=== PATIENT | male | born 1950 | race Caucasian/White ===

== ENCOUNTER 2017-10-05 03:01 | Inpatient (IN) | payer OTHER ==
[2017-10-05] VITALS (8 sets, daily range): BP systolic 119–208; BP diastolic 61–103; PULSE 73–99; TEMP 97.9–99.1
[~2017-10-05] VITALS: Ht 175.3 cm; Wt 76.5 kg
[~2017-10-05 03:01] MED LIST: ANTIVERT 25MG25 MG PO; ASPIRIN 81M81 MG/TA2 PO; CIPRO 500MG TA500 MG PO; CLARITIN 1010 MG/TAB PO; FLONASEALLERGY NS; NORVASC 5MG5 MG/TAB PO; PLAVIX 75MG TAB75 MG PO; PROCARDIA XL 3030 MG PO; TOPROL XL 25MG25 MG PO
[2017-10-05 03:36] LABS: BASO # 0.1 (0.0-0.2); BASO % 0.8 % (0.0-2.0); EOS # 0.1 (0.0-0.7); EOS % 0.9 % (0-4.0); GRAN # 10.4 (1.4-6.5); HEMATOCRIT 42.6 % (42.0-52.0); HEMOGLOBIN 13.9 g/dl (13.5-18.0); LYMPH # 1.9 (1.2-3.4); LYMPH % 13.6 % (20.0-51.0); MEAN CELL VOLUME 93 fl (80.0-100.0); MEAN CORPUSCULAR HEMOGLOBIN 31 pg (27.0-31.0); MEAN CORPUSCULAR HGB CONC 33 g/dl (33.0-37.0); MEAN PLATELET VOLUME 8.9 fl (7.4-10.4); MONO # 1.4 (0.1-0.6); MONO % 10.2 % (1.7-9.3); PLATELET COUNT 327 K/mm3 (130-400); RED BLOOD COUNT 4.56 M/mm3 (4.20-5.60); REDCELL DISTRIBUTION WIDTH-CV 12.9 % (11.5-14.5)
[2017-10-05 03:42] LABS: INR 1.1 (0.8-3.0); PROTHROMBIN TIME 12.5 SECONDS (9.7-12.8)
[2017-10-05 03:44] LABS: PARTIAL THROMBOPLASTIN TIME 30.6 SECONDS (26.0-37.0)
[2017-10-05 03:47] LABS: ALBUMIN 4.3 gm/dL (3.5-5.0); BILIRUBIN,TOTAL 1.1 mg/dL (0.0-1.0); CALCIUM 9.4 mg/dL (8.4-10.2); CREATININE, serum 1.95 mg/dL (0.66-1.25); POTASSIUM 3.8 mmol/L (3.4-5.0); TOTAL PROTEIN 7.4 gm/dL (6.4-8.2)
[2017-10-05 04:28] LABS: COLLECTION METHOD CLEAN CATCH
[2017-10-05 04:37] LABS: MUCOUS Present /lpf; PH 6 (5-8); SQUAMOUS EPITHELIAL None Seen /hpf; URINE APPEARANCE Clear; URINE BACTERIA None Seen /hpf; URINE BILIRUBIN Negative (NEGATIVE); URINE BLOOD 1+ (NEGATIVE); URINE COLOR Yellow; URINE GLUCOSE Negative (NEGATIVE); URINE KETONE Negative (NEGATIVE); URINE LEUKOCYTE ESTERASE Negative (NEGATIVE); URINE NITRATE Negative (NEGATIVE); URINE PROTEIN(semi-quant) 2+ (NEGATIVE); URINE UROBILINOGEN Negative (NEGATIVE)
[2017-10-05] MEDS ORDERED: PRAVACHOL 20MG20 MG PO (05:58)
[2017-10-05 08:35] LABS: HEMOGLOBIN 13.1 g/dl (13.5-18.0)
[2017-10-05 12:32] LABS: HEMATOCRIT 35.3 % (42.0-52.0); HEMOGLOBIN 11.8 g/dl (13.5-18.0)
[2017-10-05 16:18] LABS: HEMATOCRIT 33.6 % (42.0-52.0); HEMOGLOBIN 11.1 g/dl (13.5-18.0)
[2017-10-05 20:42] LABS: HEMATOCRIT 33.4 % (42.0-52.0); HEMOGLOBIN 10.9 g/dl (13.5-18.0)
[2017-10-06] VITALS: BP 132/57; PULSE 77; TEMP 97.3
[2017-10-06 03:30] VITALS: BP 136/68; PULSE 80; TEMP 97.8
[2017-10-06 08:04] VITALS: BP 133/65; PULSE 71; TEMP 98.1
[2017-10-06 08:34] LABS: BASO # 0.1 (0.0-0.2); BASO % 0.5 % (0.0-2.0); EOS # 0.2 (0.0-0.7); EOS % 1.7 % (0-4.0); GRAN # 7.8 (1.4-6.5); GRAN % 69.4 % (42.2-75.2); LYMPH # 1.9 (1.2-3.4); MEAN CELL VOLUME 95 fl (80.0-100.0); MEAN PLATELET VOLUME 9.4 fl (7.4-10.4); MONO # 1.2 (0.1-0.6); PLATELET COUNT 261 K/mm3 (130-400); RED BLOOD COUNT 3.67 M/mm3 (4.20-5.60); REDCELL DISTRIBUTION WIDTH-CV 13.1 % (11.5-14.5)
[2017-10-06 08:36] LABS: HEMATOCRIT 34.7 % (42.0-52.0); HEMOGLOBIN 11.4 g/dl (13.5-18.0); MEAN CORPUSCULAR HEMOGLOBIN 31 pg (27.0-31.0); MEAN CORPUSCULAR HGB CONC 33 g/dl (33.0-37.0)
[2017-10-06 08:39] LABS: CALCIUM 8.6 mg/dL (8.4-10.2); CREATININE, serum 1.55 mg/dL (0.66-1.25)
[2017-10-06 11:44] VITALS: BP 132/73; PULSE 71; TEMP 97.9
[2017-10-06 15:22] VITALS: BP 127/60; PULSE 72; TEMP 97.6
[2017-10-06 20:05] VITALS: BP 132/70; PULSE 79; TEMP 97.9
[2017-10-07] VITALS (10 sets, daily range): BP systolic 126–159; BP diastolic 62–77; PULSE 58–76; TEMP 97.2–98.2
[2017-10-07 12:50] LABS: BASO # 0.1 (0.0-0.2); BASO % 0.8 % (0.0-2.0); EOS # 0.4 (0.0-0.7); EOS % 3.6 % (0-4.0); GRAN # 7.1 (1.4-6.5); GRAN % 68.1 % (42.2-75.2); HEMATOCRIT 39.1 % (42.0-52.0); HEMOGLOBIN 12.7 g/dl (13.5-18.0); LYMPH # 1.6 (1.2-3.4); LYMPH % 15.7 % (20.0-51.0); MEAN CELL VOLUME 93 fl (80.0-100.0); MEAN CORPUSCULAR HEMOGLOBIN 30 pg (27.0-31.0); MEAN CORPUSCULAR HGB CONC 33 g/dl (33.0-37.0); MEAN PLATELET VOLUME 8.9 fl (7.4-10.4); MONO # 1.2 (0.1-0.6); MONO % 11.3 % (1.7-9.3); PLATELET COUNT 279 K/mm3 (130-400); RED BLOOD COUNT 4.19 M/mm3 (4.20-5.60)
[2017-10-07 13:05] LABS: CALCIUM 9.2 mg/dL (8.4-10.2); CREATININE, serum 1.7 mg/dL (0.66-1.25); POTASSIUM 3.5 mmol/L (3.4-5.0)
[2017-10-08 03:51] VITALS: BP 140/72; PULSE 69; TEMP 97.3
[2017-10-08 06:51] LABS: BASO # 0.1 (0.0-0.2); BASO % 0.8 % (0.0-2.0); EOS # 0.4 (0.0-0.7); HEMOGLOBIN 12.2 g/dl (13.5-18.0); LYMPH # 1.6 (1.2-3.4); LYMPH % 15.6 % (20.0-51.0); MEAN CELL VOLUME 93 fl (80.0-100.0); MEAN CORPUSCULAR HEMOGLOBIN 31 pg (27.0-31.0); MEAN CORPUSCULAR HGB CONC 33 g/dl (33.0-37.0); MONO # 1.1 (0.1-0.6); MONO % 10.3 % (1.7-9.3); PLATELET COUNT 264 K/mm3 (130-400); RED BLOOD COUNT 3.96 M/mm3 (4.20-5.60); REDCELL DISTRIBUTION WIDTH-CV 12.8 % (11.5-14.5)
[2017-10-08 06:53] LABS: HEMATOCRIT 36.9 % (42.0-52.0)
[2017-10-08 07:08] LABS: CALCIUM 8.9 mg/dL (8.4-10.2); CREATININE, serum 1.61 mg/dL (0.66-1.25); MAGNESIUM 1.7 mg/dL (1.6-2.3); POTASSIUM 3.8 mmol/L (3.4-5.0)
[2017-10-08 07:46] VITALS: BP 148/78; PULSE 73; TEMP 97.7
== END 2017-10-08 10:55 | disposition home or self-care (01) | DRG 394 ==
LOC: COL.ER 03:01 → MEDICAL 05:23
PROVIDERS: Emergency Medicine; Family Medicine; Internal Medicine Gastroenterology; Nurse Practitioner Family
PROC: 0DJD8ZZ Inspection of Lower Intestinal Tract, Via Natural or Artificial Opening Endoscopic (ICD-10-PCS; principal; 2017-10-07 14:45)
DX: K55.039 Acute (reversible) ischemia of large intestine, extent unspecified (principal); M31.31 Wegener's granulomatosis with renal involvement; K92.1 Melena; I12.9 Hypertensive chronic kidney disease with stage 1 through stage 4 chronic kidney disease, or unspecified chronic kidney disease; N18.3 Chronic kidney disease, stage 3 (moderate); E86.0 Dehydration; F17.210 Nicotine dependence, cigarettes, uncomplicated; I73.9 Peripheral vascular disease, unspecified
CPT/HCPCS: 99223-AI; 99231-AI; 99232-AI; 99239; C9113; J0360; J1956; J2250; J2270; J2765; J3010; J7030

== ENCOUNTER → 2019-07-07 | Outpatient (CLI) | payer MEDICARE, OTHER ==
[~2019-07-07] MED LIST changes: +PRAVACHOL 20MG20 MG PO
== END ==
LOC: COL.RAD 08:48
DX: R31.0 Gross hematuria (principal)

== ENCOUNTER 2019-07-17 07:25 | Observation (INO) | payer MEDICARE, OTHER ==
[2019-07-17] VITALS (11 sets, daily range): BP systolic 116–200; BP diastolic 55–90; PULSE 63–82; TEMP 97.2–98.1
[~2019-07-17] VITALS: Ht 175.3 cm; Wt 77.0 kg
[2019-07-17 07:58] LABS: BASO # 0.1 (0.0-0.2); EOS # 0.2 (0.0-0.7); EOS % 2.3 % (0-4.0); GRAN # 7.3 (1.4-6.5); GRAN % 75.2 % (42.2-75.2); HEMATOCRIT 41.5 % (42.0-52.0); HEMOGLOBIN 13.8 g/dl (13.5-18.0); LYMPH # 1.3 (1.2-3.4); LYMPH % 12.9 % (20.0-51.0); MEAN CELL VOLUME 90 fl (80.0-100.0); MEAN CORPUSCULAR HEMOGLOBIN 30 pg (27.0-31.0); MEAN CORPUSCULAR HGB CONC 33 g/dl (33.0-37.0); MONO # 0.8 (0.1-0.6); MONO % 8.3 % (1.7-9.3); PLATELET COUNT 305 K/mm3 (130-400); RED BLOOD COUNT 4.59 M/mm3 (4.20-5.60); REDCELL DISTRIBUTION WIDTH-CV 13.9 % (11.5-14.5)
[2019-07-17 08:09] LABS: ALBUMIN 4.2 gm/dL (3.5-5.0); BILIRUBIN,TOTAL 1.1 mg/dL (0.0-1.0); C-REACTIVE PROTEIN 0.6 mg/dL (0.0-0.9); CALCIUM 9.1 mg/dL (8.4-10.2); CREATININE, serum 2.28 (0.66-1.25); POTASSIUM 3.6 mmol/L (3.4-5.0); TOTAL PROTEIN 6.9 gm/dL (6.4-8.2)
--- NOTE | 2019-07-17 11:00 | NUR ---
Patient is resting and has had relief from the Morphine. Voids per urinal.
--- NOTE | 2019-07-17 12:00 | NUR ---
Resting with eyes closed and offers no further complaints of pain.
--- NOTE | 2019-07-17 14:00 | NUR ---
Resting with eyes closed and has voided per urinal. Allowed to rest and awaits surgery.
--- NOTE | 2019-07-17 18:10 | NUR ---
Patient post op to room 348. See assessment. Beckett catheter patent, cbi infusing slow rate, urine clear. No c/o urinary burning, frequency or hesitancy. No other c/o at this time.
--- NOTE | 2019-07-17 20:15 | NUR ---
Pt. sitting up in bed at this time. Pt. is A&OX3, assessment complete. INT to lt. ac patent. Three way kim with irrigation running slowly at this time. Urine is light pink at this time. Pt. denies pain or other needs, call light within reach.
[2019-07-18 04:30] VITALS: BP 109/50; PULSE 53; TEMP 97.6
[2019-07-18 04:43] VITALS: BP 126/58; PULSE 66; TEMP 97.8
[2019-07-18 04:45] VITALS: BP 132/85; PULSE 67; TEMP 97.6
[2019-07-18 07:33] VITALS: BP 134/64; PULSE 72; TEMP 98.9
--- NOTE | 2019-07-18 09:46 | NUR ---
Assessment completed, alert/oriented, vital signs stable, denies any signficant pain or discomfort, CBI running very slow and output is clear slightly pink/ no clots noted, making good urine output as well/ hx of CKD, cereat was slightly elevated from baseline, patient is tolerating diet well and drinking a lot of fluid, deneis other needs at this time, spok with and will prime and pull catheter and do 6 bottel routine/ likely discahrge later today
[2019-07-18 11:38] VITALS: BP 115/59; PULSE 72; TEMP 97.9
--- NOTE | 2019-07-18 16:27 | NUR ---
Discharge orders discussed with the patient, instructed him call office to confirm follow up date and time, isntructed to drink plent of water/ fluids, instructed to take it easy and not over exert for a few days, instructed to continue home meds, IV removed, he is ambulatory and I escorted him out the door
== END 2019-07-18 16:28 | disposition home or self-care (01) ==
LOC: COL.ER 07:25 → SURG 08:30 → INPTSU 08:30 → SURG 18:44
PROVIDERS: ADMIT Family Medicine
DX: C67.9 Malignant neoplasm of bladder, unspecified (principal); N32.0 Bladder-neck obstruction; N20.1 Calculus of ureter; I12.9 Hypertensive chronic kidney disease with stage 1 through stage 4 chronic kidney disease, or unspecified chronic kidney disease; N18.3 Chronic kidney disease, stage 3 (moderate); E78.00 Pure hypercholesterolemia, unspecified; F17.290 Nicotine dependence, other tobacco product, uncomplicated; Z79.899 Other long term (current) drug therapy; Z79.82 Long term (current) use of aspirin; R31.0 Gross hematuria; Z88.8 Allergy status to other drugs, medicaments and biological substances; Z88.1 Allergy status to other antibiotic agents; Z80.51 Family history of malignant neoplasm of kidney
CPT/HCPCS: C1769; C2617; G0378; J0690; J1100; J1170; J2270; J2405; J2704; J3010; J7030; Q9967

== ENCOUNTER 2020-10-01 17:05 | Emergency (ER) | payer MEDICARE, OTHER ==
[~2020-10-01] VITALS: Ht 175.3 cm; Wt 75.9 kg
[2020-10-01 17:19] VITALS: TEMP 98.3
[2020-10-01 18:40] LABS: BASO # 0.1 (0.0-0.2); BASO % 0.9 % (0.0-2.0); EOS # 0.2 (0.0-0.7); EOS % 1.5 % (0-4.0); GRAN # 7.3 (1.4-6.5); GRAN % 68.9 % (42.2-75.2); HEMATOCRIT 37.9 % (42.0-52.0); HEMOGLOBIN 12.5 g/dl (13.5-18.0); LYMPH # 1.8 (1.2-3.4); LYMPH % 17.4 % (20.0-51.0); MEAN CELL VOLUME 92 fl (80.0-100.0); MEAN CORPUSCULAR HEMOGLOBIN 30 pg (27.0-31.0); MEAN CORPUSCULAR HGB CONC 33 g/dl (33.0-37.0); MEAN PLATELET VOLUME 9.5 fl (7.4-10.4); MONO # 1.2 (0.1-0.6); MONO % 10.9 % (1.7-9.3); PLATELET COUNT 269 K/mm3 (130-400); RED BLOOD COUNT 4.14 M/mm3 (4.20-5.60); REDCELL DISTRIBUTION WIDTH-CV 13.7 % (11.5-14.5)
[2020-10-01 18:44] LABS: COLLECTION METHOD CLEAN CATCH
[2020-10-01 18:53] LABS: ALANINE AMINOTRANSFERASE 16 U/L (4-49); ALBUMIN 3.5 gm/dL (3.5-5.0); ALKALINE PHOSPHATASE 94 U/L (50-136); ANION GAP 8 mmol/L (7-16); AST,SGOT 24 U/L (15-37); BILIRUBIN,TOTAL 0.6 mg/dL (0.0-1.0); BLOOD UREA NITROGEN 28 mg/dL (9-20); CALCIUM 8.8 mg/dL (8.4-10.2); CARBON DIOXIDE 22 mmol/L (22-30); CHLORIDE 109 mmol/L (98-107); CREATININE, serum 2.33 (0.66-1.25); GLUCOSE 95 mg/dL (74-106); LIPASE 106 U/L (23-300); POTASSIUM 4.2 mmol/L (3.4-5.0); SODIUM 139 mmol/L (137-145); TOTAL PROTEIN 5.9 gm/dL (6.4-8.2)
[2020-10-01 18:54] LABS: C-REACTIVE PROTEIN < 0.5 mg/dL (0.0-0.9)
[2020-10-01 19:14] LABS: MUCOUS Present /lpf; PH 5 (5-8); SQUAMOUS EPITHELIAL None Seen /hpf; URINE APPEARANCE Cloudy; URINE BACTERIA None Seen /hpf; URINE BILIRUBIN Negative (NEGATIVE); URINE BLOOD 2+ (NEGATIVE); URINE COLOR Yellow; URINE GLUCOSE Negative (NEGATIVE); URINE KETONE Negative (NEGATIVE); URINE LEUKOCYTE ESTERASE 3+ (NEGATIVE); URINE NITRATE Negative (NEGATIVE); URINE PROTEIN(semi-quant) 2+ (NEGATIVE); URINE RBC 20-50 /hpf; URINE UROBILINOGEN Negative (NEGATIVE)
[2020-10-01] MEDS ORDERED: BACTRIM DS 8001 TAB PO (20:08)
[2020-10-01 20:20] VITALS: BP 141/87; PULSE 76
== END 2020-10-01 20:23 | disposition home or self-care (01) ==
LOC: COL.ER 17:05
PROVIDERS: Family Medicine
DX: N39.0 Urinary tract infection, site not specified (principal); Z88.1 Allergy status to other antibiotic agents; Z88.8 Allergy status to other drugs, medicaments and biological substances
CPT/HCPCS: J2270; J2405; J7120